=== PATIENT | female | born 2000 | race Caucasian/White ===

== ENCOUNTER 2022-07-26 20:02 | Emergency (ER) | payer OTHER ==
[~2022-07-26] VITALS: Ht 162.6 cm; Wt 70.0 kg
[2022-07-26] MEDS ORDERED: ACETAMINOPHEN 325MG TABLET PO ONE (20:30)
[2022-07-26] MEDS ORDERED: TOPUD PO (21:19)
[2022-07-26 21:41] VITALS: BP 116/65
== END 2022-07-26 21:43 | disposition home or self-care (01) ==
LOC: ER 20:02
DX: M79.10 Myalgia, unspecified site (principal)
CPT/HCPCS: 72070; 81025; 99283